=== PATIENT | female | born 1960 | race Caucasian/White ===

== ENCOUNTER 2017-09-20 09:44 | Emergency (ER) | payer SELFPAY ==
[~2017-09-20] VITALS: Ht 162.6 cm; Wt 68.9 kg
[2017-09-20 09:48] VITALS: Ht 162.6 cm; Wt 68.9 kg
[2017-09-20] MEDS ORDERED: FAMOTIDINE 20 MG INJ IV STA (10:31)
[2017-09-20] MEDS ORDERED: morphine 4 MG/ML VIAL IV STA (10:37)
[2017-09-20] MEDS ORDERED: ONDANSETRON 4 MG INJ IV STA (10:37)
[2017-09-20 11:04] LABS: BASOPHILS % 0.5 % (0.0-2.0); EOSINOPHILS % 0.6 % (0.0-7.0); HEMATOCRIT 43.2 % (37.0-47.0); HEMOGLOBIN 14.8 g/dl (12.0-16.0); LYMPHOCYTES # 1.5 10^3/ul (0.8-2.9); LYMPHOCYTES % 22.8 % (15.0-51.0); MEAN CORPUSCULAR HEMOGLOBIN 30.6 pg (29.0-33.0); MEAN CORPUSCULAR HGB CONC 34.3 g/dl (32.0-37.0); MEAN CORPUSCULAR VOLUME 89.3 fl (82.0-101.0); MEAN PLATELET VOLUME 9.4 fl (7.4-10.4); MONOCYTE # 0.6 10^3/ul (0.3-0.9); MONOCYTES % 9.8 % (0.0-11.0); NEUTROPHIL # 4.3 10^3/ul (1.6-7.5); PLATELET COUNT 298 10^3/UL (140-415); RED BLOOD COUNT 4.84 10^6/ul (4.20-5.40); RED CELL DISTRIBUTION WIDTH 12.2 % (11.5-14.5); WHITE BLOOD COUNT 6.4 10^3/ul (4.8-10.8)
[2017-09-20 11:26] LABS: ALBUMIN 4.6 g/dl (3.3-4.9); ALBUMIN/GLOBULIN RATIO 1.31; BILIRUBIN,INDIRECT 0.3 mg/dl (0-1.1); BILIRUBIN,TOTAL 0.3 mg/dl (0.2-1.3); CALCIUM 9.8 mg/dl (8.4-10.2); CREATININE 0.64 mg/dl (0.44-1.00); TOTAL PROTEIN 8.1 g/dl (6.1-8.1)
--- NOTE | 2017-09-20 11:33 | RADRPT ---
PROCEDURE: XR right Ankle. CLINICAL INDICATION: Ankle and foot pain. TECHNIQUE: AP, oblique and lateral views of the right ankle were performed. COMPARISON: None. FINDINGS: No fracture or dislocation. The bones are normal mineralization without cortical destruction. The talar dome is intact and ankle joint mortise well maintained. The remaining bones of the foot an d ankle are unremarkable. No soft tissue or osseous abnormality. IMPRESSION: 1. No fracture, dislocation, or soft tissue abnormality. RPTAT:AAJJ Physician Monika Date Time Electronically viewed and signed by Physician Monika on 09/20/2017 11:32 SOTERO/
--- NOTE | 2017-09-20 11:37 | RADRPT ---
PROCEDURE: XR Foot. CLINICAL INDICATION: Inversion injury TECHNIQUE: AP, lateral and oblique views of the right foot was obtained. COMPARISON: None. FINDINGS: Comminuted fracture deformity of the fourth metatarsal metadiaphysis with periarticular soft tissue edema. The remaining bones of the foot appear intact, with no evidence of fracture, dislocation, or subluxa tion. The joint spaces are preserved. Bone mineralization is normal. No significant soft tissue swel ling is seen. IMPRESSION: 1. Comminuted nondisplaced fracture of the fourth metacarpal metadiaphysis with surrounding soft tis michael edema. No other fracture or dislocation. RPTAT:AAJJ Physician Monika Date Time Electronically viewed and signed by Physician Monika on 09/20/2017 11:36 SOTERO/
--- NOTE | 2017-09-20 11:55 | RADRPT ---
PROCEDURE: CT ABDOMEN AND PELVIS WITHOUT CONTRAST. CLINICAL INDICATION: Right lower quadrant pain TECHNIQUE: CT scan of the abdomen and pelvis without contrast was performed on a multidetector hig h-resolution CT scanner. The patient was scanned without intravenous contrast. Coronal and sagittal reformatted images were obtained from the axial source images. Images were reviewed on a high-resol ZAOZAO PACS workstation. The total exam CTDI equals 9.4 mGy and the total exam DLP equals 198.5 mGy-c m. One or more of the following dose reduction techniques were used: Automated exposure control. Adjustment of the mA and/or kV according to patient size. Use of iterative reconstruction technique. DICOM images are available COMPARISON: None FINDINGS: CT abdomen: The lung bases are clear. The heart size is within limits. There is no significant pericardial effus ion. Hepatic morphology is within normal limits. No gross contour deforming masses. The gallbladder is wi thin normal limits. No evidence of intrahepatic or extrahepatic biliary dilatation. The spleen and pancreas are within normal limits. Both adrenal glands are within normal limits. Both kidneys are and normal anatomic position. No gross renal/ureteric calculi. No evidence of obstr uction or hydronephrosis. There is a probable right mid pole renal cyst measuring 1.3 cm. The visualized GI tract demonstrate normal caliber loops of small and large bowel. No evidence of aly wel obstruction. The appendix is within normal limits. The unenhanced aorta is unremarkable. No significant retroperitoneal lymphadenopathy. CT pelvis: The bladder is within normal limits. The uterus is within normal limits. Rectosigmoid colon demonstr ate diverticulosis. No significant free fluid. No significant pelvic lymphadenopathy. The visualized osseous structures, demonstrates mild degenerative changes of the spine. IMPRESSION: 1. No evidence of acute intra-abdominal/pelvic inflammatory process. No evidence of bowel obstructio n. The appendix is within normal limits. 2. Sigmoid diverticulosis without evidence of diverticulitis. 3. No evidence of free fluid or free air. No gross focal fluid collection. 4. Probable 1.3 cm right mid pole renal cyst. Recommend non-emergent follow-up ultrasound or contras t enhanced CT scan for complete evaluation. RPTAT: AAPP Johana Miller Physician Date Time Electronically viewed and signed by Johana Miller Physician on 09/20/2017 11:55 JL/
[2017-09-20] MEDS ORDERED: IBUP-1542 PO (12:02)
[2017-09-20] MEDS ORDERED: FAMO-96 PO (12:02)
[2017-09-20 12:41] VITALS: BP 134/76; PULSE 78; RESP 18; TEMP 98.1
--- NOTE | 2017-09-20 12:44 | ERD ---
ER Documentation Chief Complaint Chief Complaint lower abdominal pain x 2 days, right fooot pain x 1 week HPI This is a 57-year-old Kenyan-speaking female. An tumblers supervisor was used. The patient has multiple complaints. Her first complaint is that she had an ankle inversion injury approximately 8 days ago. She has swelling and pain to the midfoot that is 6 out of 10 and worse with walking. Additionally she describes epigastric and periumbilical abdominal discomfort for at least 2 days. She states that it is occasionally postprandial. She denies any fevers or chills or vomiting. No constipation. ROS All systems reviewed and are negative except as per history of present illness. Medications Home Meds Active Scripts Famotidine* (Pepcid*) 20 Mg Tablet, 20 MG PO BID for 4 Days, TAB Prov:CB SOLANO MD 09/20/17 Ibuprofen* (Motrin*) 600 Mg Tab, 600 MG PO Q6H Y for PAIN AND OR ELEVATED TEMP, #30 TAB Prov:CB SOLANO MD 09/20/17 Allergies Allergies: Coded Allergies: No Known Allergy (Unverified , 09/20/17) PMhx/Soc Medical and Surgical Hx: pt denies Medical Hx History of Surgery: Yes (TUBAL LIGATION) Anesthesia Reaction: No Hx Neurological Disorder: No Hx Respiratory Disorders: No Hx Cardiac Disorders: No Hx Psychiatric Problems: No Hx Miscellaneous Medical Probl: No Hx Alcohol Use: Yes (LIQUOR, SOCIALLY (TWICE A MONTH)) Hx Substance Use: No Hx Tobacco Use: No Smoking Status: Never smoker FmHx Family History: No diabetes Physical Exam Vitals Vital Signs Date Time Temp Pulse Resp B/P Pulse Ox O2 Delivery O2 Flow Rate FiO2 09/20/17 11:07 62 18 118/86 98 Room Air 09/20/17 09:48 97.6 70 18 119/77 98 Physical Exam General: Well developed, well nourished, no acute distress Head: Normocephalic, atraumatic. Eyes: Pupils equally reactive, EOM intact ENT: Moist mucous membranes Neck: Supple, no lymphadenopathy Respiratory: Lungs clear bilaterally, no distress Cardiovascular: RRR, no murmurs, rubs, or gallops Abdominal: Soft, mild diffuse tenderness to the abdomen with slight localization of the right side. : Deferred MSK: Right foot has mild diffuse tenderness worse to the metatarsal bones. Mild soft tissue tenderness to the lateral aspect of the ankle. No ligamentous instability, 2+ dorsalis pedis and posterior tibial pulses, negative Homans sign. Neurologic: Alert and oriented, moving all extremities, normal speech, no focal weakness, no cerebellar signs Skin: No rash Psych: Normal mood Result Diagram: 09/20/17 1047 09/20/17 1047 Results 24 hrs Laboratory Tests Test 09/20/17 10:47 White Blood Count 6.410^3/ul Red Blood Count 4.8410^6/ul Hemoglobin 14.8g/dl Hematocrit 43.2% Mean Corpuscular Volume 89.3fl Mean Corpuscular Hemoglobin 30.6pg Mean Corpuscular Hemoglobin Concent 34.3g/dl Red Cell Distribution Width 12.2% Platelet Count 18171^3/UL Mean Platelet Volume 9.4fl Neutrophils % 66.0% Lymphocytes % 22.8% Monocytes % 9.8% Eosinophils % 0.6% Basophils % 0.5% Nucleated Red Blood Cells % 0.0/100WBC Neutrophils # 4.310^3/ul Lymphocytes # 1.510^3/ul Monocytes # 0.610^3/ul Eosinophils # 0.010^3/ul Basophils # 0.010^3/ul Nucleated Red Blood Cells # 0.010^3/ul Sodium Level 142mmol/L Potassium Level 4.0mmol/L Chloride Level 102mmol/L Carbon Dioxide Level 28mmol/L Anion Gap 16 Blood Urea Nitrogen 12mg/dl Creatinine 0.64mg/dl Glucose Level 94mg/dl Calcium Level 9.8mg/dl Total Bilirubin 0.3mg/dl Direct Bilirubin 0.00mg/dl Indirect Bilirubin 0.3mg/dl Aspartate Amino Transf (AST/SGOT) 30IU/L Alanine Aminotransferase (ALT/SGPT) 38IU/L Alkaline Phosphatase 102IU/L Total Protein 8.1g/dl Albumin 4.6g/dl Globulin 3.50g/dl Albumin/Globulin Ratio 1.31 Lipase 86U/L Current Medications Medications (Trade) Dose Ordered Sig/Nikolai Route PRN Reason Start Time Stop Time Status Last Admin Dose Admin Famotidine (Pepcid Iv) 20 mg ONCE STAT IV 09/20/17 10:31 09/20/17 10:34 DC 09/20/17 10:51 Morphine Sulfate (morphine) 4 mg ONCE STAT IV 09/20/17 10:37 09/20/17 10:38 DC 09/20/17 10:51 Ondansetron HCl (Zofran Inj) 4 mg ONCE STAT IV 09/20/17 10:37 09/20/17 10:39 DC 09/20/17 10:51 Procedures/MDM EKG, MONITORS, & DIAGNOSTIC IMAGING: X-ray right foot: I reviewed and interpreted multiple views of the x-ray Bones: The distal fragment of the fourth metatarsal bone has a slightly displaced fracture Soft tissue: No evidence of foreign body X-ray right ankle: I reviewed and interpreted multiple views of the x-ray Bones: No evidence of acute fracture dislocation or subluxation Soft tissue: No evidence of foreign body CT abdomen and pelvis: No evidence of acute intra-abdominal process per radiologist EKG: I reviewed and interpreted a 12-lead EKG. Rhythm: Normal sinus rhythm Ectopy: None Intervals: No abnormalities ST segments: No elevations or depressions T waves: No contiguous inversions PROCEDURES: Splint Application Note: Splint type: Fabricated posterior mold Extremity: Right lower extremity Indication: Metatarsal fracture The patient was consented at bedside prior to splint application and states understanding of risks, benefits, and alternatives. The patient was neurovascularly intact prior to and status post application of the splint. The patient tolerated the procedure well and there were no complications. LAB INTERPRETATION: No leukocytosis or evidence of hepatobiliary obstruction MEDICAL DECISION MAKING: The patient presents with multiple complaints. Her first complaint is foot pain from an ankle inversion injury. X-ray imaging to rule out fracture would be reasonable. The second complaint is postprandial generalized abdominal discomfort. Given the patient's age CT imaging would be appropriate given she has slight localization of the right side but low pretest probability for acute appendicitis. No evidence of dysuria urgency or frequency. The patient denies any chest pain or shortness of breath. I do not believe this is consistent with cardiopulmonary process. ER COURSE: X-ray imaging shows a closed fracture of the metatarsal. Immobilization provided as above. Outpatient orthopedic follow-up appropriate. Diagnostic imaging and laboratory testing of the abdomen and pelvis are unrevealing. The patient's symptoms are improved. Outpatient follow-up is appropriate. Consider possible gas versus viral process. I kept the patient and/or family informed of laboratory and diagnostic imaging results throughout the emergency room course. DISPOSITION PLAN: We discussed follow up with the patient's primary care doctor within 24 to 48 hours as needed. We also discussed return to the emergency room for worsening symptoms or worsening condition. Outpatient referral: Orthopedic surgery Discharge Medications: Motrin, Pepcid Departure Diagnosis: Primary Impression: Abdominal pain Abdominal location: generalized Qualified Code: R10.84 - Generalized abdominal pain Additional Impression: Closed fracture of fourth metatarsal of right foot Encounter type: initial encounter Fracture alignment: displaced Qualified Code: S92.341A - Closed displaced fracture of fourth metatarsal bone of right foot, initial encounter Condition: Stable Patient Instructions: Abdominal Pain, Fracture, Foot Referrals: TONIA HOLLEY MD [facility] () Usted se phillip hecho un examen mdico de control que le indica que no est en zay condicin que requiera tratamiento urgente en el Departamento de Emergencia. Un estudio ms profundo y el tratamiento de singh condicin pueden esperar sin ningn riesgo hasta que usted sea atendida/o en el consultorio de singh mdico o zay cl mayank. Es responsabilidad suya arreglar zay giorgio para el seguimiento del bryan. MANEJO DE CONDICIONES NO URGENTES EN EL FUTURO 1) Si usted tiene un mdico de atencin primaria: Usted debera llamar a singh mdico de atencin primaria antes de venir al departamento de emergencia. Despus de las horas de consultorio, singh doctor o singh asociado/a est disponible por telfono. El mdico o enfermero de brooks en el servicio telefnico puede asesorarle por matt medio para atender el problema, o bryan contrario se puede programar zay giorgio. 2) Si usted no tiene un mdico de atencin primaria: Llame al mdico o clnica de referencia que aparece abajo marivel las horas de consultorio para hacer zay giorgio para que le vean. CLINICAS: [facility] [phone] [address] [facility] [phone] [address] [facility] [phone] [facility]. [facility] [phone] [facility] [phone] [address] [facility] [phone] [facility] () Usted se phillip hecho un examen mdico de control que le indica que no est en zay condicin que requiera tratamiento urgente en el Departamento de Emergencia. Un estudio ms profundo y el tratamiento de singh condicin pueden esperar sin ningn riesgo hasta que usted sea atendida/o en el consultorio de singh mdico o zay cl mayank. Es responsabilidad suya arreglar zay giorgio para el seguimiento del bryan. MANEJO DE CONDICIONES NO URGENTES EN EL FUTURO 1) Si usted tiene un mdico de atencin primaria: Usted debera llamar a singh mdico de atencin primaria antes de venir al departamento de emergencia. Despus de las horas de consultorio, singh doctor o singh asociado/a est disponible por telfono. El mdico o enfermero de brooks en el servicio telefnico puede asesorarle por matt medio para atender el problema, o bryan contrario se puede programar zay giorgio. 2) Si usted no tiene un mdico de atencin primaria: Llame al mdico o condado institucions de referencia que aparece abajo marivel las horas de consultorio para hacer zay giorgio para que le vean. SI USTED NO PUEDE PAGAR PARA SHAHAB UN MEDICO puede ir a: [facility] [address] [place] [address] [facility] [address] [place] [address] [facility] [address] [place] [address] [facility] [address] [place] [address] [facility] 7 a.m.- 11 p.m. Every Day of the Week NO APPOINTMENT OR AUTHORIZATION NEEDED [facility] Hours: Mon-Wed 9:00 AM - 5:00 PM Additional Instructions: Llame al doctor nombrado abamichael (Referral Sources) MAANA y annette zay GIORGIO PARA DENTRO DE ZAY SEMANA. Dgale a la secretaria que nosotros le instruimos hacer esta giorgio.Avise o llame si singh condicin se empeora antes de la giorgio. CB SOLANO MD Sep 20, 2017 12:44
== END 2017-09-20 13:06 | disposition home or self-care (01) ==
LOC: E/R 09:44
DX: S92.341A Displaced fracture of fourth metatarsal bone, right foot, initial encounter for closed fracture (principal); R10.84 Generalized abdominal pain; X50.9XXA Other and unspecified overexertion or strenuous movements or postures, initial encounter; Y92.9 Unspecified place or not applicable
CPT/HCPCS: 29515; 36415; 73610; 73630; 74176; 80053; 83690; 85025; 93005; 96374; 96375; 99285; J2270; J2405

== ENCOUNTER 2017-09-27 11:55 | Emergency (ER) | payer SELFPAY ==
[~2017-09-27] VITALS: Wt 70.1 kg
[~2017-09-27 11:55] MED LIST: FAMO-96 PO; IBUP-1542 PO
--- NOTE | 2017-09-27 14:16 | ERD ---
ER Documentation Chief Complaint Chief Complaint RIGHT LOWER LEG PAIN, PT HERE FOR RECHECK, ON CRUTCHES HPI 57-year-old female returns to the emergency department for a follow- up. The patient had a fall a week ago sustaining a right 4th metatarsal fracture. The patient was instructed to return for follow-up, she refers feeling better, pain control now she is able to ambulate without crutches. Denies weakness, tingling, numbness, no deformity. ROS All systems reviewed and are negative except as per history of present illness. Medications Home Meds Active Scripts Famotidine* (Pepcid*) 20 Mg Tablet, 20 MG PO BID for 4 Days, TAB Prov:CB SOLANO MD 09/20/17 Ibuprofen* (Motrin*) 600 Mg Tab, 600 MG PO Q6H Y for PAIN AND OR ELEVATED TEMP, #30 TAB Prov:CB SOLANO MD 09/20/17 Allergies Allergies: Coded Allergies: No Known Allergy (Unverified , 09/27/17) PMhx/Soc History of Surgery: Yes (TUBAL LIGATION) Anesthesia Reaction: No Hx Neurological Disorder: No Hx Respiratory Disorders: No Hx Cardiac Disorders: No Hx Psychiatric Problems: No Hx Miscellaneous Medical Probl: No Hx Alcohol Use: Yes (LIQUOR, SOCIALLY (TWICE A MONTH)) Hx Substance Use: No Hx Tobacco Use: No Physical Exam Vitals Vital Signs Date Time Temp Pulse Resp B/P Pulse Ox O2 Delivery O2 Flow Rate FiO2 09/27/17 12:05 98.2 72 18 121/64 97 Physical Exam Patient is in no acute distress, vital signs stable. Alert and fully oriented. EYES: PERRLA, EOMI, Sclera and conjunctiva appear normal. EARS: Canals clear, tympanic membranes WNL THROAT: Normal oropharynx. NECK: Supple, No lymphadenopathy. Full ROM without pain or tenderness. HEART: RRR, no rubs, murmurs, clicks or gallops. LUNGS: Clear to auscultation. ABDOMEN: Soft, non-tender without masses or hepatosplenomegaly. EXTREMITIES: Right foot: Normal inspection mild tenderness to palpation of the fourth metatarsal on the plantar side BACK: Full ROM, no deformity, normal back exam NEURO: Cranial nerves grossly intact, no motor or sensory deficit Procedures/MDM 57-year-old female, previously healthy, returns for a follow-up of a right metatarsal fracture. Vital signs stable, Physical exam unremarkable, right food with tenderness over fourth metatarsal area. At this time low suspicion for neurovascular damage, no acute infectious process. Physical examination and clinical presentation consistent most likely with adequate healing process of Rt 4th metatarsal fracture During the ED course the patient remained stable, no new complaints. Results and clinical impression discussed with patient who agrees with management. The patient is stable to be treated outpatient and will be discharged home with recommendations to follow up with her primary doctor and request an orthopedic referral for evaluation of the healing process. The patient was instructed to follow up with the primary care provider in the next 48h. If symptoms persist, worsen or new symptoms develop, then patient should return to the ED immediately. Instructions explained and given directly by me to the patient in Jordanian with acknowledgment and demonstrated understanding. Disclaimer: Inadvertent spelling and grammatical errors are likely due to EHR/ dictation software use and do not reflect on the overall quality of patient care. Also, please note that the electronic time recorded on this note does not necessarily reflect the actual time of the patient encounter. Departure Diagnosis: Primary Impression: Metatarsal fracture Encounter type: subsequent encounter Metatarsal bone: fourth Fracture type : closed Fracture alignment: nondisplaced Laterality: right Fracture healing: with routine healing Qualified Code: S92.344D - Closed nondisplaced fracture of fourth metatarsal bone of right foot with routine healing, subsequent encounter Condition: Stable SACHIN BRASHER MD Sep 27, 2017 14:16
== END 2017-09-27 14:41 | disposition home or self-care (01) ==
LOC: FTE 11:55
DX: S92.344D Nondisplaced fracture of fourth metatarsal bone, right foot, subsequent encounter for fracture with routine healing (principal); W18.39XD Other fall on same level, subsequent encounter
CPT/HCPCS: 99282